=== PATIENT | female | born 1980 | race African-American/Black ===

== ENCOUNTER 2016-08-05 11:20 | Emergency (ER) | payer SELFPAY ==
--- NOTE | ~2016-08-05 | CR63 ---
[facility] A Service of [facility] RADIOLOGY TEXT RESULTS PATIENT: NABILA LI LOCATION: [facility] : 76 UNIT #: [id number] AGE: [address]: Chao Encarnacion MD SEX: F ORDER DR: [id number] [facility] [address] [place], [place] [address] [id number] MR#: [id number] #: [id number] NAME: NABILA LI : 1980 SEX: F STUDY DATE/TIME: 08/05/2016 11:28 UNIT: [facility] ROOM: STUDY DESCRIPTION: CR Chest 2 View Attending Physician: Chao Encarnacion M.D. Ordering Physician: Chao Encarnacion M.D. Primary Care Physician: Generic Doctor Not In System MEDICAL IMAGING REPORT This report is preliminary unless electronic signature is present EXAM PA lateral chest DATE 08/05/2016 at 11:28 HISTORY 36-year-old female with cough, cold, chills, runny nose, ear pain and chest pain for 1 week. COMPARISON PA chest with right rib detail series 12/28/2011 FINDINGS No acute airspace disease. Heart size is within normal limits. No pleural effusion or pneumothorax. Mild degenerative spurring of the thoracic spine. IMPRESSION No acute cardiopulmonary findings. Dictated by... Mecca Barr M.D. THIS IS AN ELECTRONICALLY VERIFIED REPORT Mecca Barr M.D. at 08/06/2016 11:56 AM [facility]/elma TD: 08/05/2016 14:34 JOB #: [id number] MEDICAL IMAGING REPORT COPY
--- NOTE | ~2016-08-05 | EKG ---
PATIENT: NABILA LI UNIT #: [id number] Ventricular Rate: 82 BPM Atrial Rate: 82 BPM P-R Interval: 144 ms QRS Duration: 78 ms Q-T Interval: 358 ms QTC Calculation(Bezet): 418 ms P [place]: 23 degrees Calculated R [place]: 22 degrees Calculated T [place]: 21 degrees Diagnosis Line: Normal sinus rhythm Diagnosis Line: Normal ECG Diagnosis Line: No previous ECGs available Diagnosis Line: Confirmed by DARIN DIOP MD ([id number]) on 08/06/2016 Diagnosis Line: 5:39:30 PM INTERPRETING MD: CHIKIS PIEDRA
[~2016-08-05 11:20] MED LIST: AMOXICILLIN875 MG PO; FLONASE; IBUPROFEN PO; IBUPROFEN800 MG PO; MOTRIN PO; SUDAFED PO; [UNRECOGNIZED DRUG - CODE] PO
[2016-08-05 11:38] LABS: INFLUENZA A NEG (NEG); INFLUENZA B POS (NEG)
== END 2016-08-05 12:33 | disposition home or self-care (01) ==
LOC: CED 11:20
PROVIDERS: Emergency Medicine
DX: J10.1 Influenza due to other identified influenza virus with other respiratory manifestations (principal); Z79.899 Other long term (current) drug therapy
CPT/HCPCS: 71020; 87651; 87804; 93005; 99283